=== PATIENT | male | born 1960 | race Caucasian/White ===

== ENCOUNTER → 2018-12-12 | Outpatient (CLI) | payer MEDICARE, OTHER ==
[~2018-12-12] MED LIST: REGADENOSON 0.4 MG/5 ML DISP.SYRIN. IV ONE
--- NOTE | 2018-12-12 13:43 | PCVCIMAG ---
APPROVED REPORT Imaging Protocol: Rest Tc-99m/Stress Tc-99m 1 day Study performed: 12/12/2018 09:27:55 Indication: SYKES, Abn EKG, Fatigue Patient Location: Out-Patient Stress Nurse: Bettie Hill RN SC Tech:Yonas OviedoLINDA Ht: 6 ft 1 in Wt: 275 lbs BSA: 2.46 m2 HR: 77 bpm BP: 128/68 mmHg BMI: 36.2 Rhythm: Sinus Rhythm, T Wave Abnormality Medical History Medical History: Age, Hyperlipidemia, HTN, Former Smoker Medications: Amlodipine, ASA, Atorvastatin, Irbesartan, Metoprolol Allergies: No known drug allergies Pretest Chest Pain Characteristics: No chest pain Exercise History: Physically active Meds Held (24 hrs): Metoprolol Resting Data Rest SPECT myocardial perfusion imaging was performed in supine position 45 minutes following the intravenous injection of 15.5 mCi of Tc-99m Sestamibi. Time of rest injection: 924 Date: 12/12/2018 Administration Route: IV Administration Site: Right Hand Pharmacologic Stress Pharmacologic stress test was performed by injecting Regadenoson 0.4 mg IV push over 10-15 seconds immediately followed by the intravenous injection of 39.8 mCi of Tc-99m Sestamibi. Time of stress injection: 1049 Date: 12/12/2018 Administration Route: IV Administration Site: Right Hand Gated Stress SPECT was performed 45 minutes after stress injection. The images were gated to evaluate regional wall motion and calculate left ventricular ejection fraction. Stress Test Details Stress Test: Pharmacologic stress testing performed using 0.4 mg of regadenoson per 5 mL given IV over 10 seconds. Reason for pharmacologic stress test: Knee problems. HRMax Heart Rate (APMHR): 162 bpm Resting HR: 77 bpmTarget HR (85% APMHR): 137 bpm Max HR Achieved: 93 bpm % of APMHR: 57 Recovery HR: 87 bpm BP Resting BP: 128/68 mmHg Max BP: 131/59 mmHg Recovery BP: 112/58 mmHg ECG Resting ECG: Sinus Rhythm, nonspecific T abnormalities Stress ECG: Sinus Rhythm, nonspecific T abnormalities Arrhythmia: PVC's Recovery ECG: Sinus Rhythm, nonspecific T abnormalities Clinical Reason for Termination: Completed protocol Stress Symptoms: Dyspnea Exercise duration: min 55 sec Symptoms resolved with caffeine. Stress ECG Conclusion 1. Adequate response to intravenous Lexiscan 2. Inadequate heart rate for ECG diagnosis Study Data Post stress, the left ventricular ejection was 70%.. SSS: 1 SRS: 0 SDS: 1 TID = 0.87. Perfusion There is a medium area of moderately reduced uptake in the mid and apical segment of the inferior wall which is seen on the stress images as well as the resting images. This area thickens and moves normally and is most consistent with attenuation artifact. Wall Motion Normal left ventricular wall motion. Nuclear Conclusion ECG Findings: non-diagnostic Clinical Findings: negative for ischemia Nuclear Findings: negative for ischemia Exercise Capacity: not assessed Left Ventricular Function: normal 1. Low risk study 2. Post stress left ventricular ejection fraction 70% with normal contractility Interpreted by: Mark Cerna MD Electronically Approved: 12/12/2018 13:43:15 <Conclusion> 1. Adequate response to intravenous Lexiscan 2. Inadequate heart rate for ECG diagnosis
== END | disposition home or self-care (01) ==
LOC: PCVCIMAG 09:05
PROVIDERS: ATTEND Internal Medicine
DX: R94.31 Abnormal electrocardiogram [ECG] [EKG] (principal); R06.00 Dyspnea, unspecified; R53.83 Other fatigue
CPT/HCPCS: 78452; 93017; A9500; J2785